=== PATIENT | female | born 1950 | race Asian ===

== ENCOUNTER 2021-06-16 09:58 | Outpatient (CLI) | payer OTHER | END 2021-06-16 21:41 | disposition home or self-care (01) | LOC: RAD 09:58 | PROVIDERS: ATTEND Nurse Practitioner Family | DX: M25.512 Pain in left shoulder (principal); Z13.820 Encounter for screening for osteoporosis; E55.9 Vitamin D deficiency, unspecified; G60.8 Other hereditary and idiopathic neuropathies; M85.89 Other specified disorders of bone density and structure, multiple sites; Z90.710 Acquired absence of both cervix and uterus ==